=== PATIENT | female | born 1950 | race Two or more races ===

== ENCOUNTER 2022-06-22 08:30 | Inpatient (IN) | payer OTHER ==
[~2022-06-22] VITALS: Ht 134.6 cm; Wt 92.5 kg
[2022-06-22] MEDS ORDERED: COZAAR50 MG PO (12:44)
[2022-06-27] MEDS ORDERED: LOSARTAN-HCTZ1 EACH (08:36)
[2022-06-29] MEDS ORDERED: PERCOCET 5-3251 EACH PO (18:08)
[2022-06-29] MEDS ORDERED: ELIQUIS2.5 MG PO (18:08)
[2022-06-29] MEDS ORDERED: DUI500 PO (18:08)
== END 2022-06-30 07:12 | DRG 470 ==
LOC: O/R 06-27 05:16 → SURH 06-27 05:16
PROVIDERS: ADMIT Orthopaedic Surgery; ATTEND Orthopaedic Surgery
PROC: 0MNP0ZZ Release Left Knee Bursa and Ligament, Open Approach (ICD-10-PCS; 2022-06-27)
PROC: 0SRD0J9 Replacement of Left Knee Joint with Synthetic Substitute, Cemented, Open Approach (ICD-10-PCS; principal; 2022-06-27 17:30)
DX: M17.12 Unilateral primary osteoarthritis, left knee (principal); D62 Acute posthemorrhagic anemia; I10 Essential (primary) hypertension